=== PATIENT | male | born 1935 | race Caucasian/White ===

== ENCOUNTER 2018-03-08 20:14 | Emergency (ER) | payer OTHER, MEDICARE ==
[~2018-03-08] VITALS: Ht 162.6 cm; Wt 71.7 kg
[2018-03-08 20:21] VITALS: BP_SYST 156
--- NOTE | 2018-03-08 20:24 | NUR ---
Patient to ER bed 4 to gown for evaluation. Side rails up. Report given to Suman MUNOZ.
--- NOTE | 2018-03-08 20:30 | NUR ---
Patient to ER via triage with c/o inability to void since earlier today. Patient had an implant placed today for BPH, patient s awake, alert and oriented in no acute distress, vital signs stable, respirations even and unlabored, skin warm and dry to touch. Patient able to ambulate to bed 4 with slow, steady gait. Awaiting evaluation by ER MD, will continue to observe and assess.
--- NOTE | 2018-03-08 20:45 | NUR ---
Dr Fitzgerald at bedside to evaluaye patient.
--- NOTE | 2018-03-08 20:50 | NUR ---
# 16 FR Mcnamara catheter with use of sterile technique. Immediate return of 200 cc bloody urine noted. Bedside drainage bag placed below level of bladder. Pt tolerated procedure well. Patient has been unable to void since having a procedure done earlier today.
--- NOTE | 2018-03-08 21:10 | NUR ---
Mcnamara catheter draining without difficulty.
[2018-03-08 21:15] VITALS: BP_SYST 140
--- NOTE | 2018-03-08 21:15 | NUR ---
Patient given written and verbal discharge instructions and verbalizes understanding. ER MD discussed with patient the results and treatment provided. Patient in stable condition. ID arm band removed. No RX given. Patient educated on pain management and to follow up with PMD. Pain Scale 0. Opportunity for questions provided and answered. Patient left ER ambulating with slow, steady gait in no acute distress. Patient tolerating catheter/leg bag.
== END 2018-03-08 21:15 | disposition home or self-care (01) ==
LOC: SED 20:14
DX: R33.9 Retention of urine, unspecified (principal); N40.0 Benign prostatic hyperplasia without lower urinary tract symptoms; J44.9 Chronic obstructive pulmonary disease, unspecified
CPT/HCPCS: 99284

== ENCOUNTER 2018-03-12 04:00 | Emergency (ER) | payer OTHER, MEDICARE ==
[~2018-03-12] VITALS: Ht 162.6 cm; Wt 71.7 kg
[2018-03-12 05:00] VITALS: BP_SYST 169
[2018-03-12] MEDS ORDERED: LIDOCAINE VISCOUS 2%, 15 ML UDC MM ONE (05:45)
[2018-03-12 07:25] VITALS: BP_SYST 142
[2018-03-12 07:41] LABS: BILIRUBIN,URINE 2+ (NEGATIVE); BLOOD, URINE 3+ (NEGATIVE); CLARITY/URINE CLOUDY (CLEAR); COLOR,URINE RED (YELLOW); GLUCOSE,URINE TRACE (NEGATIVE); KETONES,URINE 1+ (NEGATIVE); LEUKOCYTE ESTERASE ,URINE 1+ (NEGATIVE); NITRITE, URINE POSITIVE (NEGATIVE); PH,URINE 6.5 (5.0-8.0); PROTEIN URINE 3+ (NEGATIVE)
[2018-03-12 07:56] LABS: BACTERIA,URINE None Seen /HPF (None Seen); RBC,URINE >100 /HPF (0-3)
== END 2018-03-12 07:25 | disposition home or self-care (01) ==
LOC: SED 04:00
DX: N40.1 Benign prostatic hyperplasia with lower urinary tract symptoms (principal); R33.8 Other retention of urine; I10 Essential (primary) hypertension; J44.9 Chronic obstructive pulmonary disease, unspecified; Z90.49 Acquired absence of other specified parts of digestive tract; Z87.891 Personal history of nicotine dependence
CPT/HCPCS: 51702; 81000; 87086; 99284; J2001